=== PATIENT | female | born 2000 | race Caucasian/White ===

== ENCOUNTER 2021-08-05 04:57 | Emergency (ER) | payer MEDICAID ==
[2021-08-05] MEDS ORDERED: Acetaminophen 325 MG Tab PO ONE (05:27)
[2021-08-05] MEDS ORDERED: Ibuprofen 600 MG Tab PO ONE (05:27)
--- NOTE | 2021-08-05 05:34 | EDM.PDOC ---
ED HPI GENERAL MEDICAL PROBLEM - General Chief Complaint: General Stated Complaint: LOWER BACK PAIN AND FEVER Time Seen by Provider: 08/05/21 05:31 - History of Present Illness INITIAL COMMENTS - FREE TEXT/NARRATIVE: HISTORY AND PHYSICAL: History of present illness: This is a 21-year-old female with a history significant for multiple urinary tract infections in the past who presents ER today complaining of fever that woke her up from sleep 3 in the morning along with flank pain and dysuria similar to prior urinary tract infections. Patient has any recent nausea, vomiting, diarrhea, cough, cold, congestion, rhinorrhea, sore throat, ear pain. Patient reports he been tolerating p.o. solids and liquids well. Patient is not taking any medication for fever prior to coming into the ED. Patient has any chest pain. Patient has any abdominal pain or discomfort. Patient reports that she was having dysuria prior to arrival to ED however when she gave us urine sample she denies any dysuria here in the ER. Patient has any hematuria. Patient reports no history of kidney stones in the past. Patient has any history of hypertension, diabetes, liver, lung, kidney problems. Patient has any abdominal or chest surgeries in the past. Patient has any tobacco or drugs. Patient reports that she drank alcohol 2 nights ago. Patient denies any homicidal or suicidal ideations. Review of systems: As per history of present illness and below otherwise all systems reviewed and negative. Past medical history: As per history of present illness and as reviewed below otherwise noncontributory. Surgical history: As per history of present illness and as reviewed below otherwise noncontributory. Social history: No reported history of drug abuse. Family history: As per history of present illness and as reviewed below otherwise noncontributory. Physical exam: This patient was seen and evaluated during the 2019 SARS-CoV-2 novel coronavirus pandemic period. Community viral transmission is ongoing at time of this encounter and the emergency department is operating under pandemic response procedures. Constitutional: Patient is oriented to person, place, and time. Appears well- developed and well-nourished. No distress. HEENT: Moist mucous membranes Head: Normocephalic and atraumatic Eyes: Right eye exhibits no discharge. Left eye exhibits no discharge. No scleral icterus Neck: Normal range of motion. No tracheal deviation present. Cardiovascular: Normal rate and regular rhythm. Pulmonary: Effort normal, no respiratory distress. Abd: Soft, nondistended, no rebound/guarding, no psoas or obturator signs, no tenderness at Mcberney's point, no Ahn's sign. Pt does not present with an exam that would be consistent with an acute surgical abdomen at this time. Nontender to palpation throughout her abdomen. Patient does have tenderness palpation to her bilateral flanks. Musculoskeletal: Normal range of motion Neurologic: Alert and oriented to person, place and time. Skin: [place], warm and dry. Psychiatric: Normal mood and affect. Behavior is normal. Judgment and thought content normal. Nursing note and vital signs have been reviewed Patient is well-appearing and does not appear to be in any acute distress. Patient is tachycardic with a temperature of 100.4 in ER Diagnostics: Patient refused adamantly to have an IV placed to get labs and IV fluids. Patient reports that it makes her extremely anxious and she is adamantly refusing and understands the risks of not being able to draw labs to check for a WBC count, lactic acid to rule out sepsis another causes of her pain. Patient understands the risks of possible from not being able to fully evaluate her here in the ED and she accepts those risks. She is amenable to obtaining a Covid test and she did give us urine sample. Therapeutics: Acetaminophen, ibuprofen for fever Assessment and plan: 21-year-old female who presents ER today secondary to fever, flank pain and dysuria similar to prior urinary tract infections in the past. Patient's urinalysis came back normal however patient is requesting treatment with antibiotics for possibly early urinary tract infection. Patient's Covid test also came back positive. Patient does not meet criteria for Regeneron therapy at this time. Patient will be discharged home with instructions to follow-up with her primary care physician over the phone as needed for instructions regarding her Covid. Patient was given a prescription for Omnicef, ibuprofen and acetaminophen [id number]. Return precautions have been discussed with the patient. Reassessment at the time of disposition demonstrates that the patient is in no acute distress. The patient has remained stable throughout the entire ED visit and is without objective evidence for acute process requiring urgent intervention or hospitalization. The patient is stable for discharge, counseling is provided as documented above, discussed symptomatic treatment and specific conditions for return. I have spoken with the patient/caregiver and discussed todays findings, in addition to providing specific details for the plan of care. Questions are answered and there is agreement with the plan. Definitive disposition and diagnosis as appropriate pending reevaluation and review of above. Left Flank Pain Score (Numeric/FACES): 8 - Related Data Allergies Allergy/AdvReac Type Severity Reaction Status Date / Time No Known Allergies Allergy Verified 08/05/21 05:11 Home Meds: Home Meds Aspirin/Acetaminophen/Caffeine [Excedrin Migraine Caplet] 1 each PO ASDIRECTED PRN 08/05/21 [History] Cefdinir 300 mg PO Q12HR #20 capsule 08/05/21 [Rx] Ibuprofen 600 mg PO Q6HR PRN #30 tablet 08/05/21 [Rx] Past Medical History Psychiatric History: Reports: Anxiety, Depression - Infectious Disease History Infectious Disease History: Reports: None Social & Family History - Family History Family Medical History: No Pertinent Family History - Tobacco Use Tobacco Use Status *Q: Never Tobacco User - Recreational Drug Use Recreational Drug Use: No ED ROS GENERAL - Review of Systems Review Of Systems: See Below ED EXAM, GENERAL - Physical Exam Exam: See Below Course - Vital Signs Last Recorded V/S: Last Vital Signs Temp 100.4 F 08/05/21 05:06 Pulse 143 H 08/05/21 05:06 Resp 18 08/05/21 05:06 BP 120/73 08/05/21 05:06 Pulse Ox 100 08/05/21 05:06 - Orders/Labs/Meds Orders: Active Orders 24 hr Category Date Time Status Suicide Precautions [RC] .Per Facility Policy Care 08/05/21 05:16 Active Labs: Laboratory Tests 08/05/21 08/05/21 08/05/21 Range/Units 05:10 05:25 05:25 Urine Color YELLOW Urine Appearance CLEAR Urine pH 7.5 (5.0-8.0) Ur Specific Robson 1.015 (1.001-1.035) Urine Protein NEGATIVE (NEGATIVE) mg/dL Urine Glucose (UA) NEGATIVE (NEGATIVE) mg/dL Urine Ketones >=80 (NEGATIVE) mg/dL Urine Occult Blood NEGATIVE (NEGATIVE) Urine Nitrite NEGATIVE (NEGATIVE) Urine Bilirubin NEGATIVE (NEGATIVE) Urine Urobilinogen 0.2 (<2.0) EU/dL Ur Leukocyte Esterase NEGATIVE (NEGATIVE) Urine HCG, Qual NEGATIVE (NEGATIVE) SARS-CoV-2 RNA (SHAKIRA) POSITIVE H (NEGATIVE) Meds: Medications Discontinued Medications Generic Name Dose Route Start Last Admin Trade Name Freq PRN Reason Stop Dose Admin Acetaminophen 650 mg 08/05/21 05:27 08/05/21 05:32 Acetaminophen 325 Mg Tab PO 08/05/21 05:28 650 mg NOW ONE Administration Cefdinir 300 mg 08/05/21 06:16 Cefdinir 300 Mg Cap PO 08/05/21 06:17 ONETIME ONE Ibuprofen 600 mg 08/05/21 05:27 08/05/21 05:32 Ibuprofen 600 Mg Tab PO 08/05/21 05:28 600 mg ONETIME ONE Administration Departure - Departure Time of Disposition: 06:22 Disposition: Home, Self-Care 01 Condition: Good Clinical Impression: Flank pain, History of pyelonephritis, COVID-19 virus infection - Discharge Information Prescriptions: Cefdinir 300 mg PO Q12HR #20 capsule Ibuprofen 600 mg PO Q6HR PRN #30 tablet PRN Reason: Pain Instructions: Flank Pain, Adult, [id number], 10 Things You Can Do to Manage Your COVID-19 Symptoms at Home - [facility] (05/02/2021), COVID-19: Quarantine vs. Isolation - [facility] (10/03/2020) Referrals: Bere Amin NP [Primary Care Provider] - Forms: ED Department Discharge Additional Instructions: You were seen and evaluated in ER today secondary to signs and symptoms consistent with your prior urinary tract infections. Your urine test today was normal. As we discussed, you have acknowledged knowing and have accepted that without drawing blood and checking lab tests, we could be missing potential life threatening illnesses. Given your prior history, we will empirically treat you with antibiotics for possible early urinary tract infection. You can take acetaminophen and ibuprofen as needed for fevers. Please drink plenty of liquids and get plenty of rest over the next 1 to 2 days. Please return the ER if you start developing any new or concerning symptoms or if you should change your mind about allowing us to draw labs to further evaluate your current condition. Your Covid test was also positive. This is more likely the cause of the fevers that you have been experiencing or muscle aches. 1. Your COVID-19 screening is positive. That means you do have the coronavirus and you are considered contagious. Your vital signs and oxygen saturation are well enough that you were able to monitor your symptoms at home. Continue to monitor for trouble breathing, new confusion or inability to arouse, bluish lips or face or any of the other symptoms we discussed -if this occurs please return to the emergency room. 2. Please self quarantine over the next 10 days. Inform any persons that you have been in contact with since you started becoming symptomatic that you have tested positive; they should be made aware and take the appropriate steps as needed. 3. You can take NyQuil during the evening to help get a restful night sleep. May alternate Tylenol and ibuprofen as needed for pain and fever management. 4. The [facility] department will be calling you and following up with you. The [place] [facility] Hotline phone number , They are open Wednesday - Wednesday 7am - 7pm. Follow up with your primary care provider for re-evaluation and re-testing after the 10 day quarantine and discuss when you should be seen. The following information is given to patients seen in the emergency department who are being discharged to home. This information is to outline your options for follow-up care. We provide all patients seen in our emergency department with a follow-up referral. The need for follow-up, as well as the timing and circumstances, are variable depending upon the specifics of your emergency department visit. If you don't have a primary care physician on staff, we will provide you with a referral. We always advise you to contact your personal physician following an emergency department visit to inform them of the circumstance of the visit and for follow-up with them and/or the need for any referrals to a consulting specialist. The emergency department will also refer you to a specialist when appropriate. This referral assures that you have the opportunity for follow-up care with a specialist. All of these measure are taken in an effort to provide you with optimal care, which includes your follow-up. Under all circumstances we always encourage you to contact your private romain lópez who remains a resource for coordinating your care. When calling for follow-up care, please make the office aware that this follow-up is from your recent emergency room visit. If for any reason you are refused follow-up, please contact the [facility] Emergency Department at and asked to speak to the emergency department charge nurse. [facility] [address] [place] [address] [facility] [address] [place] [address] Sepsis Event Note (ED) - Evaluation Sepsis Screening Result: No Definite Risk - Focused Exam Vital Signs: Vital Signs Temp Pulse Resp BP Pulse Ox 08/05/21 05:06 100.4 F 143 H 18 120/73 100 - My Orders Last 24 Hours: My Active Orders 08/05/21 05:16 Suicide Precautions [RC] .Per Facility Policy - Assessment/Plan Last 24 Hours: My Active Orders 08/05/21 05:16 Suicide Precautions [RC] .Per Facility Policy
[2021-08-05] MEDS ORDERED: Cefdinir 300 MG Cap PO ONE (06:16)
== END 2021-08-05 06:30 | disposition home or self-care (01) ==
LOC: MW.ED 04:57
DX: U07.1 COVID-19 (principal); R10.9 Unspecified abdominal pain
CPT/HCPCS: 81003; 81025; 87635; 99284; A9270; U0002

== ENCOUNTER 2021-10-29 12:55 | Emergency (ER) | payer MEDICAID, OTHER ==
[2021-10-29] MEDS ORDERED: Sodium Chloride 0.9% 1,000 ML IV ONE (12:59)
[2021-10-29] MEDS ORDERED: Ketorolac 30 MG/ML SDV IVPUSH ONE (12:59)
[2021-10-29] MEDS ORDERED: Ondansetron 4 MG/2 ML SDV IVPUSH ONE (12:59)
[2021-10-29] MEDS ORDERED: Famotidine 20 MG/2 ML SDV IVPUSH ONE (12:59)
[2021-10-29 13:55] LABS: BLOOD UREA NITROGEN,BUN 7 mg/dL (7.0-18.0); CARBON DIOXIDE,CO2 21.8 mmol/L (21.0-32.0); CHLORIDE,CL 100 mmol/L (98-107); GLUCOSE RANDOM 98 mg/dL (74-106); LIPASE 73 U/L (73-393); POTASSIUM,K 3.3 mmol/L (3.5-5.1); SODIUM,NA 137 mmol/L (136-145)
[2021-10-29 14:17] LABS: CORONAVIRUS COVID-19 NAA NEGATIVE (NEGATIVE); INFLUENZA A NAA POSITIVE (NEGATIVE); INFLUENZA B NAA NEGATIVE (NEGATIVE)
== END 2021-10-29 15:08 | disposition home or self-care (01) ==
LOC: MW.ED 12:55
DX: J10.1 Influenza due to other identified influenza virus with other respiratory manifestations (principal); Z79.82 Long term (current) use of aspirin; Z20.822 Contact with and (suspected) exposure to COVID-19
CPT/HCPCS: 0240U; 36415; 80053; 81003; 81025; 83605; 83690; 85025; 87040; 96374; 96375; 99284; J1885; J2405; J3490; J7030

== ENCOUNTER 2023-05-27 12:44 | Day surgery (SDC) | payer MEDICAID ==
[~2023-05-27 12:44] MED LIST: Lactated Ringers 1,000 ML IV SCH; Propofol 200 MG/20 ML SDV ONE; Sodium Chloride 0.9% 10 ML Syringe FLUSH PRN; Sodium Chloride 0.9% 2.5 ML Syringe FLUSH PRN; Sodium Chloride 0.9% 20 ML SDV IV PRN
[2023-05-27] MEDS ORDERED: Dexmedetomidine 200 MCG/2 ML SDV ONE (13:51)
== END 2023-05-27 15:00 | disposition home or self-care (01) ==
LOC: MW.SDS 12:44
PROVIDERS: ATTEND Surgery
DX: K59.09 Other constipation (principal); K21.00 Gastro-esophageal reflux disease with esophagitis, without bleeding; F41.0 Panic disorder [episodic paroxysmal anxiety]; F32.A Depression, unspecified; R63.4 Abnormal weight loss; Z88.8 Allergy status to other drugs, medicaments and biological substances; Z79.899 Other long term (current) drug therapy; Z87.891 Personal history of nicotine dependence
CPT/HCPCS: 43239; 45380; 81025; J2704; J7120; J3490